=== PATIENT | male | born 1945 | race Caucasian/White ===

== ENCOUNTER 2017-08-17 08:12 | Outpatient (CLI) | payer MEDICARE, OTHER ==
[2017-08-17 12:40] LABS: CHOL/HDL RATIO 5.7 (<5.0); CHOLESTEROL 287 mg/dL; HDL CHOLESTEROL 50 mg/dL; LDL/HDL RATIO 4.4 (<3.6); TRIGLYCERIDES 90 mg/dL; VLDL CHOLESTEROL 18 mg/dL
== END 2017-08-17 08:13 | disposition home or self-care (01) ==
LOC: LAB.F 08:12
PROVIDERS: ATTEND Internal Medicine Cardiovascular Disease
DX: E78.5 Hyperlipidemia, unspecified (principal); R06.00 Dyspnea, unspecified
CPT/HCPCS: 36415; 80061; 84450; 84460

== ENCOUNTER 2017-10-31 08:08 | Outpatient (CLI) | payer MEDICARE, OTHER ==
[2017-10-31 11:40] LABS: CHOL/HDL RATIO 4.6 (<5.0); CHOLESTEROL 237 mg/dL; HDL CHOLESTEROL 52 mg/dL; LDL/HDL RATIO 3.1 (<3.6); TRIGLYCERIDES 122 mg/dL; VLDL CHOLESTEROL 24 mg/dL
== END 2017-10-31 08:09 | disposition home or self-care (01) ==
LOC: LAB.F 08:08
PROVIDERS: ATTEND Internal Medicine Cardiovascular Disease
DX: R06.00 Dyspnea, unspecified (principal); E78.5 Hyperlipidemia, unspecified
CPT/HCPCS: 36415; 80061; 84450; 84460

== ENCOUNTER 2018-07-25 07:51 | Outpatient (CLI) | payer MEDICARE, OTHER ==
[2018-07-25 11:39] LABS: CHOL/HDL RATIO 4.5 (<5.0); CHOLESTEROL 205 mg/dL; HDL CHOLESTEROL 46 mg/dL; LDL CHOLESTEROL,CALCULATED 133 mg/dL; LDL/HDL RATIO 2.9 (<3.6); VLDL CHOLESTEROL 26 mg/dL
== END 2018-07-25 07:52 | disposition home or self-care (01) ==
LOC: LAB.F 07:51
PROVIDERS: ATTEND Internal Medicine
DX: E78.5 Hyperlipidemia, unspecified (principal)
CPT/HCPCS: 36415; 80061; 83721

== ENCOUNTER 2019-09-04 08:46 | Outpatient (CLI) | payer MEDICARE, OTHER ==
[2019-09-04 18:32] LABS: ALBUMIN 3.8 g/dL (3.2-5.5); ALBUMIN/GLOBULIN RATIO 1.3 (1.0-2.2); ALKALINE PHOSPHATASE 45 IU/L (42-121); ALT ALANINE AMINOTRANSFERASE 20 IU/L (10-60); AST ASPARTATE AMINOTRANSFERASE 18 IU/L (10-42); BUN - BLOOD UREA NITROGEN 19 mg/dL (6-20); CALCIUM 8.8 mg/dL (8.5-10.3); CARBON DIOXIDE - CO2 29 mmol/L (21-32); CHLORIDE 104 mmol/L (101-111); CHOL/HDL RATIO 4.9 (<5.0); CHOLESTEROL 254 mg/dL; CREATININE 0.9 mg/dL (0.6-1.2); GFR - MDRD 83 (>89); GLUCOSE 93 mg/dL (70-100); HDL CHOLESTEROL 52 mg/dL; LDL CHOLESTEROL,CALCULATED 178 mg/dL; LDL/HDL RATIO 3.4 (<3.6); SODIUM 139 mmol/L (135-145); TOTAL PROTEIN 6.8 g/dL (6.7-8.2); VLDL CHOLESTEROL 24 mg/dL
== END 2019-09-04 08:47 | disposition home or self-care (01) ==
LOC: LAB.S 08:46
PROVIDERS: ATTEND Internal Medicine
DX: E78.5 Hyperlipidemia, unspecified (principal); N40.1 Benign prostatic hyperplasia with lower urinary tract symptoms
CPT/HCPCS: 36415; 80053; 80061; 83721; 84153

== ENCOUNTER 2020-11-24 07:50 | Outpatient (CLI) | payer MEDICARE, OTHER ==
[2020-11-24 15:06] LABS: BASOPHILS % (AUTO) 0.7 %; EOSINOPHILS # (AUTO) 0.1 10^3/uL (0.0-0.7); EOSINOPHILS % (AUTO) 2.2 %; HGB - HEMOGLOBIN 15.6 g/dL (14.0-18.0); LYMPHOCYTES # (AUTO) 1.9 10^3/uL (1.5-3.5); LYMPHOCYTES % (AUTO) 33.8 %; MEAN CORPUSCULAR HEMOGLOBIN 29.8 pg (27.0-31.0); MEAN CORPUSCULAR HGB CONC 32.6 g/dL (32.0-36.0); MEAN CORPUSCULAR VOLUME 91.4 fL (80.0-94.0); MEAN PLATELET VOLUME 10.2 fL (7.4-11.4); MONOCYTES # (AUTO) 0.3 10^3/uL (0.0-1.0); NEUTROPHILS # (AUTO) 3.1 10^3/uL (1.5-6.6); NEUTROPHILS % (AUTO) 56.9 %; PLT - PLATELET COUNT 196 10^3/uL (130-450); RED BLOOD COUNT 5.23 10^6/uL (4.70-6.10); RED CELL DISTRIBUTION WIDTH 12.9 % (12.0-15.0); WHITE BLOOD COUNT 5.5 x10^3/uL (4.8-10.8)
[2020-11-24 15:27] LABS: ALBUMIN 4.1 g/dL (3.2-5.5); ALBUMIN/GLOBULIN RATIO 1.5 (1.0-2.2); ALKALINE PHOSPHATASE 50 IU/L (42-121); ALT ALANINE AMINOTRANSFERASE 24 IU/L (10-60); AST ASPARTATE AMINOTRANSFERASE 21 IU/L (10-42); BUN - BLOOD UREA NITROGEN 24 mg/dL (6-20); CALCIUM 9.2 mg/dL (8.5-10.3); CARBON DIOXIDE - CO2 25 mmol/L (21-32); CHLORIDE 106 mmol/L (101-111); CHOL/HDL RATIO 4.6 (<5.0); CHOLESTEROL 262 mg/dL; GLUCOSE 95 mg/dL (70-100); HDL CHOLESTEROL 57 mg/dL; LDL CHOLESTEROL,CALCULATED 183 mg/dL; LDL/HDL RATIO 3.2 (<3.6); SODIUM 139 mmol/L (135-145); TOTAL PROTEIN 6.8 g/dL (6.7-8.2); VLDL CHOLESTEROL 22 mg/dL
== END 2020-11-24 07:51 | disposition home or self-care (01) ==
LOC: LAB.S 07:50
PROVIDERS: ATTEND Internal Medicine
DX: Z00.00 Encounter for general adult medical examination without abnormal findings (principal); Z12.5 Encounter for screening for malignant neoplasm of prostate; E78.5 Hyperlipidemia, unspecified
CPT/HCPCS: 36415; 80053; 80061; 85025; G0103; 83721; 84153

== ENCOUNTER 2023-10-11 12:39 | Emergency (ER) | payer MEDICARE ==
[2023-10-11 13:27] LABS: BASOPHILS % (AUTO) 0.6 %; EOSINOPHILS # (AUTO) 0.1 10^3/uL (0.0-0.7); EOSINOPHILS % (AUTO) 1.9 %; HCT - HEMATOCRIT 43.3 % (42.0-52.0); HGB - HEMOGLOBIN 14.5 g/dL (14.0-18.0); LYMPHOCYTES # (AUTO) 1.3 10^3/uL (1.5-3.5); LYMPHOCYTES % (AUTO) 27.9 %; MEAN CORPUSCULAR HEMOGLOBIN 29.8 pg (27.0-31.0); MEAN CORPUSCULAR HGB CONC 33.5 g/dL (32.0-36.0); MEAN CORPUSCULAR VOLUME 88.9 fL (80.0-94.0); MEAN PLATELET VOLUME 8.9 fL (7.4-11.4); MONOCYTES # (AUTO) 0.2 10^3/uL (0.0-1.0); MONOCYTES % (AUTO) 4.8 %; NEUTROPHILS # (AUTO) 3.1 10^3/uL (1.5-6.6); NEUTROPHILS % (AUTO) 64.4 %; PLT - PLATELET COUNT 163 10^3/uL (130-450); RED BLOOD COUNT 4.87 10^6/uL (4.70-6.10); WHITE BLOOD COUNT 4.8 x10^3/uL (4.8-10.8)
[2023-10-11 13:40] LABS: ALBUMIN 4.2 g/dL (3.2-5.5); ALBUMIN/GLOBULIN RATIO 2.1 (1.0-2.2); BILIRUBIN,TOTAL 0.5 mg/dL (0.2-1.0); CREATININE 0.7 mg/dL (0.6-1.3); POTASSIUM 3.9 mmol/L (3.5-4.5); TOTAL PROTEIN 6.2 g/dL (6.4-8.9)
[2023-10-11 13:48] LABS: TROPONIN I HIGH SENSITIVITY 2.8 ng/L (2.3-19.7)
--- NOTE | 2023-10-11 13:53 | XRAY Report ---
PROCEDURE: Chest 1 View X-Ray INDICATIONS: Chest Pain TECHNIQUE: One view of the chest was acquired. COMPARISON: Chest x-ray 09/22/2014. FINDINGS: Surgical changes and devices: None. Lungs and pleura: No pleural effusions or pneumothorax. Lungs are clear. Mediastinum: Mediastinal contours appear normal. Heart size is normal. Bones and chest wall: No suspicious bony lesions. Overlying soft tissues appear unremarkable. IMPRESSION: No acute cardiopulmonary process. Reviewed by: Luis F Tomlin MD on 10/11/2023 1:52 PM PST Approved by: Luis F Tomlin MD on 10/11/2023 1:52 PM PST Station ID: [id number]
--- NOTE | 2023-10-11 17:09 | ED Physician Documentation ---
History of Present Illness - Stated complaint Stated Complaint: DIZZY/LIGHT HEADED - Chief complaint Chief Complaint: Neuro - Additonal information Additional information: 78-year-old male presents emergency department for evaluation of multiple episodes of near syncope that have been occurring since yesterday. He reports that several times while walking he feels as though he is about to faint. He denies chest pain or shortness of breath during these events. He did endorse a mild headache. He states that yesterday he was sitting in his car when he nearly blacked out though he had not had any exertion. Patient recently returned to [facility] from [place] on Monday. He denies any leg swelling or calf pain. Past medical history is most significant for prostate issues. Currently on Flomax and Finasteride Presentation to the ER he is alert well-appearing ambulatory without assistance. Heart rate shows sinus rhythm in the 60s. Mildly hypertensive 180/80. Saturating 97% on room air. Review of Systems Constitutional: denies: Fever, Chills Throat: reports: Reviewed and negative Cardiac: denies: Chest pain / pressure, Palpitations Respiratory: reports: Reviewed and negative GI: reports: Reviewed and negative : reports: Reviewed and negative Skin: reports: Reviewed and negative Musculoskeletal: reports: Reviewed and negative Neurologic: reports: Near syncope. denies: Headache, Head injury, LOC Psychiatric: reports: Reviewed and negative Endocrine: reports: Reviewed and negative PD PAST MEDICAL HISTORY - Past Medical History Past Medical History: Yes Cardiovascular: High cholesterol Respiratory: None Endocrine/Autoimmune: None GI: Diverticulitis : None HEENT: None Psych: None Musculoskeletal: None Derm: None - Past Surgical History Past Surgical History: Yes General: Other HEENT: Other - Present Medications Home Medications: Ambulatory Orders Medication Instructions Recorded Confirmed Pravastatin Sodium 10 mg PO 04/19/13 04/19/13 - Allergies Allergies/Adverse Reactions: Allergies Allergy/AdvReac Type Severity Reaction Status Date / Time No Known Drug Allergies Allergy Verified 10/11/23 12:45 - Social History Does the pt smoke?: No Smoking Status: Never smoker Does the pt drink ETOH?: Yes Does the pt have substance abuse?: No - Immunizations Immunizations are current?: Yes - POLST Patient has POLST: No PD ED PE NORMAL - General General: Alert and oriented X 3, No acute distress - HEENT HEENT: PERRL - Neck Neck: Supple, no meningeal sign - Cardiac Cardiac: RRR, No murmur - Respiratory Respiratory: No respiratory distress, Clear bilaterally - Abdomen Abdomen: Normal bowel sounds, Soft, Non tender - Back Back: No CVA TTP - Derm Derm: Normal color, Warm and dry, No rash - Extremities Extremities: No deformity - Neuro Neuro: Alert and oriented X 3, 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 Relevant findings are: Rate: Rate (enter#) (65) Rhythm: NSR [place]: Normal Intervals: Normal [place]. No: Prolonged QT Ischemia: Q waves (V1-2) Compare to prior EKG: Old EKG unavailable Computer interpretation: Agree with computer - Labs Labs: Laboratory Tests 10/11/23 10/11/23 13:19 13:19 WBC 4.8 RBC 4.87 Hgb 14.5 Hct 43.3 MCV 88.9 MCH 29.8 MCHC 33.5 RDW 13.0 Plt Count 163 MPV 8.9 Neut # (Auto) 3.1 Lymph # (Auto) 1.3 L [place] # (Auto) 0.2 Eos # (Auto) 0.1 Baso # (Auto) 0.0 Absolute Nucleated RBC 0.00 Nucleated RBC % 0.0 Sodium 137 Potassium 3.9 Chloride 105 Carbon Dioxide 28 Anion Gap 4.0 L BUN 17 Creatinine 0.7 Estimated GFR (MDRD) 109 Glucose 133 H Calcium 9.0 Total Bilirubin 0.5 AST 15 ALT 15 Alkaline Phosphatase 51 Troponin I High Sens 2.8 Total Protein 6.2 L Albumin 4.2 Globulin 2.0 L Albumin/Globulin Ratio 2.1 Lipase 30 - Rads (name of study) cxr Relevant Findings:: Final report received (Criteria no acute cardiopulmonary process) angio chest Relevant Findings:: Final report received (No that is I mean they thought no acute cardiopulmonary disease. Did moderate-sized hiatal hernia. Mildly suboptimal central pulmonary artery opacification, no definite pulmonary embolism) PD Medical Decision Making - ED course Complexity details: reviewed results, re-evaluated patient ED course: just want to make sure that were not 78-year-old male presents emergency department for evaluation of recurrent episodes of near syncope. This is occurred about 4 times over the last 24 hours. Usually during exertion. However he is denying chest pain or palpitations. He did just returned from [place] on airplane 72 hours ago. Denied leg swelling. In the emergency department he is alert very well-appearing. Normal neurological and cerebellar exam. His vital signs that show sinus rhythm on the monitor. No fever. He does have modest hypertension. We did obtain orthostatic vital signs which were negative for orthostasis. While here in the emergency department for prolonged length of time he is remained in sinus rhythm without any ectopy or arrhythmia noted. CBC and electrolytes as interpreted by myself were without acute worrisome abnormalities including anemia abnormal renal function or abnormal LFTs. Twelve- lead EKG was nonischemic. Negative troponin. History is not consistent with ACS. A chest x-ray showed no pneumonia, pneumothorax or pleural effusion. The etiology of the recurrent near syncope is not clear at this time and given the recent travel occult pulmonary embolism remained on the differential. As such a CT angiogram was completed which showed no evidence of pulmonary embolism. While here in the emergency department the patient has remained on a director of cardiac rehabilitation and review of his activity here is revealed normal sinus rhythm without any ectopy or arrhythmia. His vital signs are stable. There were no orthostasis. Patient is discharged in stable condition. He is advised that he should obtain a Holter monitor in order to evaluate for occult arrhythmia as well as an echocardiogram for evaluation of structural heart disease that could be contributing to the symptoms. He was advised to return to the ER for any new or worsening symptoms. Departure - Departure Disposition: 01 Home, Self Care Clinical Impression: Near syncope Condition: Stable Record reviewed to determine appropriate education?: Yes Instructions: ED Near Syncope Unkn Comments: Contreras you are seen today in the emergency department because several times over the last 2 days you have had episodes where you feel like you are going to pass out or faint. Your EKG today did not show any new or worrisome symptoms. Your chest x-ray today was also normal. The labs that we obtained to check for electrolytes and anemia were normal. Your orthostatic vital signs were normal. Because you recently returned to [place] on an airplane we did discuss the possibility of a pulmonary embolism as cause for your episodes but the CT of the chest did not show a pulmonary embolus. It is important that you follow very closely with your primary care doctor. You should be referred for a Holter monitor. This is a patch that is worn for several days or weeks to look for any abnormal heart rhythms that could be contributing to your symptoms. The second test that you need is an echocardiogram. This is an ultrasound of the heart that looks for structural problems that could be contributing to your symptoms. Return to the emergency department if you have any new or worsening symptoms, develop chest pain, shortness of air or have any fainting episodes. Forms: PCP List
[2023-10-11] MEDS: SODIUM CHLORIDE 0.9% 1,000 ML IV STA (17:17)
[2023-10-11] MEDS: iohexoL-300 100 ML VIAL IVP ONE (18:31)
--- NOTE | 2023-10-11 19:50 | CT Report ---
PROCEDURE: HEAD WO INDICATIONS: dizzy; near syncope TECHNIQUE: Noncontrast 4.5 mm thick angled axial sections acquired from the foramen magnum to the vertex. For r adiation dose reduction, the following was used: automated exposure control, adjustment of mA and/or kV according to patient size. COMPARISON: None. FINDINGS: Image quality: Excellent. CSF spaces: Basal cisterns are patent. No extra-axial fluid collections. Ventricles are normal in size and shape. Brain: No midline shift. No intracranial masses or hemorrhage. Cloud-white matter interface is norm al. Skull and face: Calvarium and visualized facial bones are intact, without suspicious lesions. Sinuses: Right maxillary and bilateral ethmoid of sinus mucosal thickening. The mastoids are clear. IMPRESSION: 1. No acute intracranial pathology. 2. Right maxillary and bilateral ethmoid sinus disease. Reviewed by: Mary Pablo MD on 10/11/2023 7:49 PM PST Approved by: Mary Pablo MD on 10/11/2023 7:49 PM PST Station ID: [id number]
--- NOTE | 2023-10-11 20:35 | CT Report ---
PROCEDURE: ANGIO CHEST W/WO INDICATIONS: r/o PE; near syncope; recent air travel CONTRAST: 80mL Omni 300 TECHNIQUE: After the administration of intravenous contrast, 2 mm axial images were acquired from the pulmonary apices to the posterior costophrenic angles during the arterial phase. In addition, 1 mm lung kernel and 5 mm soft tissue kernel reconstructions were performed. 3-dimensional coronal oblique maximum int ensity projection (MIP) reformats, 8 mm axial MIP, and 5 mm coronal and sagittal MPR reformats were t hen performed through the thorax. For radiation dose reduction, the following was used: automated exp osure control, adjustment of mA and/or kV according to patient size. COMPARISON: None. FINDINGS: Image quality: Mildly suboptimal opacification of central pulmonary arteries. Large vessels: No filling defects within the opacified pulmonary arteries, accounting for motion and contrast timing. No evidence of acute aortic syndrome or aortic aneurysm. Lungs and pleura: No consolidation. No pleural effusions. No pneumothorax. No suspicious pulmonary n odules which require follow up. Mediastinum: Heart size is normal. No pericardial effusion. No large vessel abnormality. No mediastin al adenopathy by size criteria. There is a moderate-sized hiatal hernia. Chest wall and lower neck: Thyroid is unremarkable. No axillary or supraclavicular adenopathy by size . Bones: No aggressive osseous abnormality. Upper Abdomen: Unremarkable. IMPRESSION: 1. Mildly suboptimal central pulmonary artery opacification. No definitive pulmonary embolism. 2. No acute cardiopulmonary disease. 3. Moderate sized hiatal hernia. Reviewed by: Mary Pablo MD on 10/11/2023 8:34 PM PST Approved by: Mary Pablo MD on 10/11/2023 8:34 PM PST Station ID: [id number]
[2023-10-11 21:25] VITALS: BP 135/78; O2SAT 100
== END 2023-10-11 21:11 | disposition home or self-care (01) ==
LOC: ED 12:39
DX: R55 Syncope and collapse (principal); E78.00 Pure hypercholesterolemia, unspecified
CPT/HCPCS: 36415; 70450; 71045; 71275; 80053; 83690; 84484; 85025; 93005; 99284; Q9967

== ENCOUNTER 2023-11-15 12:34 | Outpatient (CLI) | payer MEDICARE, OTHER ==
--- NOTE | 2023-11-15 15:36 | Ultrasound Report ---
PROCEDURE: Carotid Doppler Complete INDICATIONS: NEAR SYNCOPE TECHNIQUE: Color and pulse Doppler interrogation was performed of both carotid systems, with image documentation and velocity measurements. COMPARISON: None. FINDINGS: Right side: Brachial blood pressure: 137/73 mm Hg. Common carotid artery peak systolic velocity: 75 cm/sec. Internal carotid artery peak systolic velocity: 87 cm/sec. Internal carotid artery end diastolic velocity: 34 cm/sec. External carotid artery peak systolic velocity: 118 cm/sec. ICA/CCA peak systolic ratio: 1.1. Cloud scale imaging description: Mild atheromatous plaque is present at the carotid bifurcation. Percent internal carotid artery stenosis: Less than 50%. Vertebral artery: Flow direction is antegrade. Left side: Brachial blood pressure: 145/72 mm Hg. Common carotid artery peak systolic velocity: 68 cm/sec. Internal carotid artery peak systolic velocity: 106 cm/sec. Internal carotid artery end diastolic velocity: 31 cm/sec. External carotid artery peak systolic velocity: 88 cm/sec. ICA/CCA peak systolic ratio: 1.0. Cloud scale imaging description: Mild atheromatous plaque is present within the proximal internal car otid artery. Percent internal carotid artery stenosis: Less than 50%. Vertebral artery: Flow direction is antegrade. IMPRESSION: 1. In the right internal carotid artery, there is less than 50 percent stenosis based on peak systoli c velocity criteria. 2. In the left internal carotid artery, there is less than 50 percent stenosis based on peak systolic velocity criteria. 3. Antegrade blood flow within the right vertebral artery. 4. Antegrade blood flow within the left vertebral artery. The estimate of stenosis included in the report of the imaging study was calculated using the [facility]-end orsed standards of carotid artery stenosis. Reviewed by: Sandra Diggs MD on 11/15/2023 3:35 PM PST Approved by: Sandra Diggs MD on 11/15/2023 3:35 PM PST Station ID: [id number]
== END 2023-11-15 12:35 | disposition home or self-care (01) ==
LOC: DI 12:34
PROVIDERS: ATTEND Physician Assistant Medical
DX: I65.23 Occlusion and stenosis of bilateral carotid arteries (principal)
CPT/HCPCS: 93880

== ENCOUNTER 2023-11-30 08:56 | Outpatient (CLI) | payer MEDICARE, OTHER ==
--- NOTE | 2023-11-30 10:15 | CT Report ---
PROCEDURE: Head WO INDICATIONS: DIZZY SPELLS TECHNIQUE: Noncontrast 4.5 mm thick angled axial sections acquired from the foramen magnum to the vertex. For r adiation dose reduction, the following was used: automated exposure control, adjustment of mA and/or kV according to patient size. COMPARISON: 10/11/2023 FINDINGS: Image quality: Excellent. CSF spaces: Basal cisterns are patent. No extra-axial fluid collections. Ventricles are normal in size and shape. Brain: No midline shift. No intracranial masses or hemorrhage. Cloud-white matter interface is norm al. Skull and face: Calvarium and visualized facial bones are intact, without suspicious lesions. Sinuses: Visualized sinuses and mastoids are clear. IMPRESSION: Noncontrast head CT within normal limits for age, stable from prior. Reviewed by: Diony Mirza MD on 11/30/2023 9:14 AM [facility] Approved by: Diony Mirza MD on 11/30/2023 9:14 AM [facility] Station ID: [id number]
== END 2023-11-30 08:57 | disposition home or self-care (01) ==
LOC: DI 08:56
PROVIDERS: ATTEND Physician Assistant Medical
DX: R42 Dizziness and giddiness (principal); J34.89 Other specified disorders of nose and nasal sinuses; R05.3 Chronic cough
CPT/HCPCS: 94010; 94729

== ENCOUNTER 2023-11-30 09:00 | Outpatient (CLI) | payer MEDICARE, OTHER | END 2023-11-30 09:01 | disposition home or self-care (01) | LOC: RT 09:00 | PROVIDERS: ATTEND Physician Assistant Medical | DX: R05.3 Chronic cough (principal) | CPT/HCPCS: 94010; 94729 ==

== ENCOUNTER 2023-12-08 13:45 | Outpatient (CLI) | payer MEDICARE, OTHER | END 2023-12-08 13:46 | disposition home or self-care (01) | LOC: DI 13:45 | PROVIDERS: ATTEND Physician Assistant Medical | DX: R42 Dizziness and giddiness (principal); I51.7 Cardiomegaly; I35.0 Nonrheumatic aortic (valve) stenosis | CPT/HCPCS: 93306 ==

== ENCOUNTER 2024-05-09 07:03 | Outpatient (CLI) | payer MEDICARE, OTHER ==
[2024-05-09 14:35] LABS: BASOPHILS % (AUTO) 0.5 %; EOSINOPHILS # (AUTO) 0.1 10^3/uL (0.0-0.7); EOSINOPHILS % (AUTO) 2.2 %; HCT - HEMATOCRIT 45.6 % (42.0-52.0); HGB - HEMOGLOBIN 14.7 g/dL (14.0-18.0); LYMPHOCYTES % (AUTO) 31.6 %; MEAN CORPUSCULAR HEMOGLOBIN 29.6 pg (27.0-31.0); MEAN CORPUSCULAR HGB CONC 32.2 g/dL (32.0-36.0); MEAN CORPUSCULAR VOLUME 91.9 fL (80.0-94.0); MONOCYTES # (AUTO) 0.4 10^3/uL (0.0-1.0); MONOCYTES % (AUTO) 5.7 %; NEUTROPHILS # (AUTO) 3.9 10^3/uL (1.5-6.6); NEUTROPHILS % (AUTO) 59.8 %; PLT - PLATELET COUNT 209 10^3/uL (130-450); RED BLOOD COUNT 4.96 10^6/uL (4.70-6.10); RED CELL DISTRIBUTION WIDTH 12.8 % (12.0-15.0); WHITE BLOOD COUNT 6.5 x10^3/uL (4.8-10.8)
[2024-05-09 14:56] LABS: ALBUMIN 4.2 g/dL (3.2-5.5); ALBUMIN/GLOBULIN RATIO 1.7 (1.0-2.2); ALKALINE PHOSPHATASE 65 IU/L (42-121); ALT ALANINE AMINOTRANSFERASE 24 IU/L (10-60); AST ASPARTATE AMINOTRANSFERASE 19 IU/L (10-42); BILIRUBIN,TOTAL 0.8 mg/dL (0.2-1.0); BUN - BLOOD UREA NITROGEN 20 mg/dL (6-20); CALCIUM 9.3 mg/dL (8.5-10.3); CARBON DIOXIDE - CO2 28 mmol/L (21-32); CHLORIDE 104 mmol/L (101-111); CHOL/HDL RATIO 4.5 (<5.0); CHOLESTEROL 230 mg/dL; GFR - MDRD 72 (>89); GLUCOSE 96 mg/dL (74-104); HDL CHOLESTEROL 51 mg/dL; LDL CHOLESTEROL,CALCULATED 161 mg/dL; LDL/HDL RATIO 3.2 (<3.6); POTASSIUM 4.2 mmol/L (3.5-4.5); SODIUM 137 mmol/L (135-145); TOTAL PROTEIN 6.7 g/dL (6.4-8.9); TRIGLYCERIDES 92 mg/dL (48-352); VLDL CHOLESTEROL 18 mg/dL
== END 2024-05-09 07:04 | disposition home or self-care (01) ==
LOC: LAB.S 07:03
PROVIDERS: ATTEND Registered Nurse
DX: E78.5 Hyperlipidemia, unspecified (principal); K57.90 Diverticulosis of intestine, part unspecified, without perforation or abscess without bleeding; Z79.899 Other long term (current) drug therapy; Z12.5 Encounter for screening for malignant neoplasm of prostate
CPT/HCPCS: 36415; 80053; 80061; 85025; G0103; 83721; 84153

== ENCOUNTER 2024-06-07 08:00 | Outpatient (CLI) | payer MEDICARE, OTHER ==
[2024-06-07 16:53] LABS: BILIRUBIN,URINE NEGATIVE (NEGATIVE); GLUCOSE, URINE (UA) NEGATIVE (NEGATIVE); KETONES,URINE (UA) NEGATIVE (NEGATIVE); LEUKOCYTE ESTERASE, URINE NEGATIVE (NEGATIVE); NITRITE,URINE NEGATIVE (NEGATIVE); OCCULT BLOOD,URINE NEGATIVE (NEGATIVE); PROTEIN,URINE NEGATIVE (NEGATIVE); UROBILINOGEN,URINE 0.2 (NORMAL) E.U./dL (NORMAL)
[2024-06-07 16:56] LABS: CLARITY,URINE CLEAR (CLEAR)
[2024-06-07 17:09] LABS: BACTERIA,URINE None Seen /HPF (None Seen); RBC,URINE 0-5 /HPF (0-5); SQUAMOUS EPITHELIAL CELL,UR NONE SEEN (<= Few); WBC,URINE 0-3 /HPF (0-3)
== END 2024-06-07 23:59 | disposition home or self-care (01) ==
LOC: LAB 08:00
PROVIDERS: ATTEND Urology
DX: N40.1 Benign prostatic hyperplasia with lower urinary tract symptoms (principal); N13.8 Other obstructive and reflux uropathy
CPT/HCPCS: 81001; 87086